=== PATIENT | male | born 1985 | race Caucasian/White ===

== ENCOUNTER 2018-03-26 15:52 | Inpatient (IN) | payer MEDICAID, OTHER ==
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
[2018-03-26] MEDS ORDERED: MAG HYDROX/AL HYDROX/SIMETH 30 ML CUP PO PRN (18:25)
[2018-03-26] MEDS ORDERED: ACETAMINOPHEN TAB 325 MG TAB PO PRN (18:25)
[2018-03-26] MEDS ORDERED: MAGNESIUM HYDROXIDE 2,400 MG/10 ML CUP PO PRN (18:25)
[2018-03-26] MEDS ORDERED: ZIPRASIDONE 20 MG VIAL IM PRN (18:25)
[2018-03-26] MEDS ORDERED: LORazepam 2 MG/ML INJ IM PRN (18:32)
[2018-03-26] MEDS: LORazepam 1 MG TAB PO PRN (18:50)
[2018-03-26] MEDS: NICOTINE 21MG/24HR PATCH TRANSDERM SCH ×2 (18:50→18:53)
--- NOTE | 2018-03-26 19:42 | P.MDCNMH ---
History of Present Illness H&P Date: 03/26/18 Chief Complaint: hypertension 32 year old male with history of schizophrenia, and hypertension. Patient presented to the hospital from [place] for psychiatry evaluation. Patient is a heroin addict. When he was asked why he was brought to the hospital he said I was brought in due to my behavior. However He denies any homicidal or suicidal ideation. He currently denies any physical complaints or medical concerns. He denies any fevers chills chest pain trouble breathing coughing denies any abdominal pain nausea vomiting changes in his urinary or bowel habits. He denies any focal neurologic deficits. He admits to using heroin and smoking cigarettes, he checked himself into rehab for heroin addiction. He claims to be compliant with his home medications: Wellbutrin, Seroquel Patient reports recent history of kidney failure about a month ago he is not aware of any other details Review of Systems Pertinent positives as noted in HPI. All other systems were reviewed and are negative Past Medical History Past Medical History: Hypertension History of Any Multi-Drug Resistant Organisms: None Reported Past Surgical History: No Surgical Hx Reported Past Psychological History: Anxiety, Bipolar, Schizophrenia Smoking Status: Current every day smoker Past Alcohol Use History: None Reported Past Drug Use History: Heroin, Marijuana - Past Family History Family Family Medical History: No Reported History Medications and Allergies Home Medications Medication Instructions Recorded Confirmed Type NIFEdipine XL [Procardia Xl] 30 mg PO DAILY 03/26/18 03/26/18 History QUEtiapine [SEROquel] 200 mg PO HS 03/26/18 03/26/18 History buPROPion HCL [Wellbutrin XL] 300 mg PO DAILY 03/26/18 03/26/18 History busPIRone HCL 15 mg PO BID 03/26/18 03/26/18 History Allergies Allergy/AdvReac Type Severity Reaction Status Date / Time No Known Allergies Allergy Verified 03/26/18 16:57 Physical Exam Vitals: Vital Signs Temp Pulse Resp BP Pulse Ox 03/26/18 15:56 97.4 F L 101 H 20 141/84 96 Intake and Output 03/26/18 03/26/18 03/26/18 06:59 14:59 22:59 Other: Weight 83.915 kg Constitutional: No acute distress, conversant, pleasant Eyes: Anicteric sclerae, moist conjunctiva, no lid-lag Pupils equal round reactive to light ENMT: NC/AT Oropharynx clear, no erythema, or exudates Neck: Supple, FROM, no masses, or JVD No carotid bruits No thyromegaly Lungs: Clear to auscultation Clear to percussion Normal respiratory effort, no accessory muscle use Cardiovascular: Heart regular in rate and rhythm, No murmurs, gallops, or rubs No peripheral edema Abdominal: Soft Nontender, no guarding, rebound or rigidity Abdomen moving with respiration Normoactive bowel sounds No hepatomegaly, No splenomegaly No palpable mass No abdominal wall hernia noted Skin: Normal temperature, tone, texture, turgor No induration No subcutaneous nodules No rash, lesions No ulcers Extremities: No digital cyanosis No clubbing Pedal pulses intact and symmetrical Radial pulses intact and symmetrical No calf tenderness Psychiatric: Alert and oriented to person, place and time Paranoid affect Poor judgment Neuro Muscles Strength 5/5 in all 4 extremities Sensation to light touch grossly present throughout Cranial nerves II-XII grossly intact No focal sensory deficits Lymphatics: no palpable cervical or supraclavicular , or inguinal lymph nodes Cranial Nerve Examination - Cranial Nerves Cranial Nerve II- Optic: Intact Cranial Nerve III- Oculomotor: Intact Cranial Nerve IV- Trochlear: Intact Cranial Nerve V- Trigeminal: Intact Cranial Nerve - Abducens: Intact Cranial Nerve VII- Facial: Intact Cranial Nerve VIII- Auditory: Intact Cranial Nerve IX- Glossopharyngeal: Intact Cranial Nerve X- Vagus: Intact Cranial Nerve XI- Accessory: Intact Cranial Nerve XII- Hypoglossal: Intact Assessment and Plan Assessment: 32-year-old male with history of hypertension and schizophrenia brought into the hospital due to abnormal behavior for psychiatry evaluation he reports that he has been compliant with his home medications, he recently admitted himself to [facility] [place] for rehab due to her addiction to heroin. He currently denies any physical or medical complaints or concerns Plan: Abnormal behavior possible acute psychosis with history of schizophrenia Management per psych Hypertension Resume nifedipine Recent history of acute renal failure per patient report Check BMP Low risk for DVT, patient is ambulatory Tobacco smoking abuse Patient counseled to quit smoking Nicotine replacement therapy offered Thank you for allowing us to participate in the care of this patient. We will follow peripherally. Do not hesitate to contact us with questions. Someone can be reached from the [facility] hospitalist group at all hours of the day at [phone].
[2018-03-26] MEDS: QUEtiapine 100 MG TAB PO SCH (20:05)
[2018-03-26 20:18] VITALS: BMI 23.7
[2018-03-27] MEDS: NIFEdipine XL 30 MG TAB.ER.24 PO SCH (08:25)
[2018-03-27] MEDS: NICOTINE 21MG/24HR PATCH TRANSDERM SCH (08:26)
[2018-03-27] MEDS: ARIPiprazole 15 MG TAB PO SCH (09:51)
[2018-03-27] MEDS: busPIRone HCl 5 MG TAB PO SCH ×2 (09:52→20:10)
[2018-03-27 11:12] LABS: Basophils % (A) 1 %; Eosinophils # (A) 0.1 k/uL (0-0.7); Eosinophils % (A) 1 %; HCT 44.7 % (39.0-53.0); HGB 14.8 gm/dL (13.0-17.5); Lymphocytes # (A) 1.5 k/uL (1.0-4.8); Lymphocytes % (A) 22 %; MCH 30.1 pg (25.0-35.0); MCHC 33.1 g/dL (31.0-37.0); Mean Platelet Volume 6.9; Monocytes # (A) 0.4 k/uL (0-1.0); Monocytes % (A) 6 %; Neutrophils # (A) 4.7 k/uL (1.3-7.7); Neutrophils % (A) 68 %; Platelet Count 270 k/uL (150-450); RBC 4.91 m/uL (4.30-5.90); WBC 6.9 k/uL (3.8-10.6)
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
[2018-03-27 11:41] LABS: ALT 52 U/L (21-72); AST 30 U/L (17-59); Alkaline Phosphatase 102 U/L (38-126); Anion Gap 15 mmol/L; Blood Urea Nitrogen 25 mg/dL (9-20); Calcium 10.3 mg/dL (8.4-10.2); Carbon Dioxide 17 mmol/L (22-30); Chloride 108 mmol/L (98-107); Glucose 102 mg/dL (74-99); Potassium 4.4 mmol/L (3.5-5.1); Sodium 140 mmol/L (137-145); Total Bilirubin 1.5 mg/dL (0.2-1.3); Total Protein 8.8 g/dL (6.3-8.2)
[2018-03-27] MEDS: buPROPion XL 300 MG TAB.ER.24H PO SCH (11:53)
[2018-03-27] MEDS: QUEtiapine 100 MG TAB PO SCH (20:10)
[2018-03-28] MEDS: busPIRone HCl 5 MG TAB PO SCH ×2 (08:11→21:03)
[2018-03-28] MEDS: NIFEdipine XL 30 MG TAB.ER.24 PO SCH (08:11)
[2018-03-28] MEDS: NICOTINE 21MG/24HR PATCH TRANSDERM SCH (08:11)
[2018-03-28] MEDS: buPROPion XL 300 MG TAB.ER.24H PO SCH (08:11)
[2018-03-28] MEDS: ARIPiprazole 15 MG TAB PO SCH (08:11)
--- NOTE | 2018-03-28 16:19 | P.PN ---
Progress Note - Text Progress Note Date: 03/28/18 Interval history: Patient is seen in cross coverage today. He reports that he is feeling better. He does not voice any adverse psychotropic medication side effects. Sleep and appetite seem to be doing well. He talks about coming from [place] and does not want to lose his bed there. Mental status exam: He is alert and cooperative with the interview. Speech is fluent, not rapid or pressured. Thought processes are organized. His mood he describes is doing well. He denies any thoughts of harm to self or others. He does not verbalize any hallucinations or delusional thoughts. He is not showing any agitation. Plan: Patient be maintained on current psychotropic medication regimen. We'll continue to monitor for any medication side effects monitor his ongoing response to treatment.
[2018-03-28] MEDS: QUEtiapine 100 MG TAB PO SCH (21:03)
[2018-03-29] MEDS: NICOTINE 21MG/24HR PATCH TRANSDERM SCH (07:59)
[2018-03-29] MEDS: busPIRone HCl 5 MG TAB PO SCH ×2 (08:00→20:26)
[2018-03-29] MEDS: NIFEdipine XL 30 MG TAB.ER.24 PO SCH (08:00)
[2018-03-29] MEDS: ARIPiprazole 15 MG TAB PO SCH (08:00)
[2018-03-29] MEDS: buPROPion XL 300 MG TAB.ER.24H PO SCH (08:00)
--- NOTE | 2018-03-29 14:19 | P.PN ---
Progress Note - Text Progress Note Date: 03/29/18 Interval history: Patient seen in [facility] again today. Says he slept about 8-9 hours last night. His appetite is improved. He states that his sleep and appetite were decreased before came in the hospital. He again relates today that he came here from [place] where he had been for just a brief time. He is compliant with taking psychotropic medications and does not voice any adverse side effects. Mental status exam: He is alert and cooperative with the interview. He does not show any agitation. He describes that his mood is doing well and makes reference to wanting to be discharged. He denies any thoughts of harm to self or others. He denies any hallucinations. Thought processes are organized. Plan: Patient will be maintained on current psychotropic medications. Continue to monitor his ongoing response to treatment and monitor for any medication side effects.
[2018-03-29] MEDS: LORazepam 1 MG TAB PO PRN (16:18)
[2018-03-29] MEDS: QUEtiapine 100 MG TAB PO SCH (20:26)
[2018-03-30] MEDS: ARIPiprazole 15 MG TAB PO SCH (07:57)
[2018-03-30] MEDS: busPIRone HCl 5 MG TAB PO SCH ×2 (07:57→19:58)
[2018-03-30] MEDS: NICOTINE 21MG/24HR PATCH TRANSDERM SCH (07:58)
[2018-03-30] MEDS: NIFEdipine XL 30 MG TAB.ER.24 PO SCH (07:58)
[2018-03-30] MEDS: buPROPion XL 300 MG TAB.ER.24H PO SCH (07:58)
--- NOTE | 2018-03-30 10:52 | P.PN ---
Progress Note - Text Interval history: The patient is found in his room he follows me to an interview room. He indicates his mood is improving. He reports that he is not experiencing any delusional thoughts or hallucinations since he has been here. Staff report though over the weekend he had been discussing delusional themes. Other staff find he is guarded and underreporting symptoms. He has no questions or concerns regarding his medication. He states he plans on going to [place] and then some longer term residential facility for chemical dependency treatment. Mental status exam: The patient is alert he is dressed in his own clothing. Eye contact is appropriate speech is fluent spontaneous nonpressured. He is fairly reserved other than expressing he wants to be discharged there is little spontaneous speech. He denies having any suicidal or homicidal ideation intent or plan. He is reporting no auditory or visual hallucinations or any specific delusions. This seems to conflict with reports from staff observing him over the weekend. He demonstrates no verbal or physical aggressiveness. Affect remains constricted. He is oriented to person place and date. Plan: The patient will continue on his current medication we will consider titrating the Abilify further. We are monitoring him for safety. Social work will investigate his eligibility to return to [place] and we'll contact his mother. We will continue to monitor him for safety. Vital signs reviewed.
[2018-03-30] MEDS: LORazepam 1 MG TAB PO PRN ×2 (12:06→19:13)
[2018-03-30] MEDS: QUEtiapine 100 MG TAB PO SCH (19:58)
[2018-03-31] MEDS: LORazepam 1 MG TAB PO PRN ×3 (01:35→18:59)
[2018-03-31] MEDS: buPROPion XL 300 MG TAB.ER.24H PO SCH (08:32)
[2018-03-31] MEDS: busPIRone HCl 5 MG TAB PO SCH ×2 (08:32→20:08)
[2018-03-31] MEDS: NICOTINE 21MG/24HR PATCH TRANSDERM SCH (08:32)
[2018-03-31] MEDS: ARIPiprazole 15 MG TAB PO SCH (08:33)
[2018-03-31] MEDS: NIFEdipine XL 30 MG TAB.ER.24 PO SCH (08:33)
--- NOTE | 2018-03-31 11:16 | P.PN ---
Progress Note - Text Interval history: The patient is found in his room he follows me to an interview room. The patient states that he sleeping at night and feels that he is much improved because he was able to sleep here in the hospital. He states he has had no experiences of hallucinations and reports they are random. He continues to assert that even during prolonged clean times he has had symptoms of psychosis. He feels the Abilify may be preventing them from occurring now. He did participate in group today. He is demonstrating no agitated behavior. He is ventilating his frustration that he would like to move on to the next step which is [facility]. Social work has informed me that [facility] is willing to take the patient back once he is psychiatric stable. Staff share that he has been showering he's been eating and he is capable of attending to his own activities of daily living. Mental status exam: The patient is alert he is dressed in his own clothing hygiene grooming are good. He seated calmly in the chair for the duration of our session. Eye contact is appropriate speech is fluent spontaneous nonpressured. He demonstrates no tangential thinking loose associations or flight of ideas. He is reporting no auditory or visual hallucinations he is endorsing no specific delusions at this time. He continues to assert that "those things are real" but occur randomly. He voices frustration that people assume he has no symptoms because of drug use. He demonstrates no verbal or physical aggressiveness. He demonstrates no abnormal repetitive involuntary movements. Affect demonstrates some range. Initially appears frustrated but he is able to appropriately smile and show reactivity during the conversation. He is oriented to person place and date. Plan: The patient will be continued on his current medication. We will indicate to [facility] that the patient appears to be stable to participate in their program. He is endorsing no acute psychosis he is demonstrating an ability to accomplish his own ADLs he is voicing no suicidal or homicidal thoughts. Vital signs reviewed. He will be appropriate for discharge to an available bed at [facility].
[2018-03-31] MEDS: QUEtiapine 100 MG TAB PO SCH (20:08)
[2018-04-01 07:26] VITALS: BP 108/63; PULSE 61; RESP 16; TEMP 97.6
[2018-04-01] MEDS: NICOTINE 21MG/24HR PATCH TRANSDERM SCH (07:54)
[2018-04-01] MEDS: ARIPiprazole 15 MG TAB PO SCH (07:55)
[2018-04-01] MEDS: buPROPion XL 300 MG TAB.ER.24H PO SCH (07:55)
[2018-04-01] MEDS: NIFEdipine XL 30 MG TAB.ER.24 PO SCH (07:55)
[2018-04-01] MEDS: busPIRone HCl 5 MG TAB PO SCH (09:06)
--- NOTE | 2018-04-01 11:09 | P.DS ---
Providers Date of admission: 03/26/18 17:44 Expected date of discharge: 04/01/18 Attending physician: Balwinder Beckham Consults: 03/26/18 18:25 Consult Physician Routine Consulting Provider: Daniel Physician Consult Reason/Comments: H & P and medical management Do you want consulting provider notified?: Yes Primary care physician: Physician Nonstaff - Discharge Diagnosis(es) (1) Unspecified psychosis Current Visit: Yes Status: Acute Priority: High (2) Cannabis use disorder, moderate, dependence Current Visit: Yes Status: Acute Priority: Medium (3) Methamphetamine use disorder, moderate Current Visit: Yes Status: Acute Priority: High (4) Opioid use disorder Current Visit: Yes Status: Acute Priority: High (5) Cocaine use disorder Current Visit: Yes Status: Acute Priority: Medium Hospital Course: Brief summary of admission note: This patient is a 32-year-old male who was admitted to the mental health unit through the emergency room with acute symptoms of psychosis. The patient was petition by his mother. The patient was making statements that monsters and spider people were going to kill him. He reported experiencing visual and auditory hallucinations. He felt that somebody was impersonating his mother. He had not been sleeping or eating well since the of his brother in February. For full details please refer to my psychiatric evaluation dated 03/27/2018. Summary of hospital course: The patient was admitted to the mental health unit and he signed in voluntarily. We reviewed his presenting symptoms and treatment options. He had described a long-standing history of experiencing auditory and visual hallucinations and delusional thoughts of being followed by invisible monsters. He states that he would often here noises of people being consumed by these creatures. He is aware that the substances he uses candid provoke symptoms of psychosis but he states that there are times when he is sober and still experiences the symptoms of psychosis. He does abuse numerous substances. He readily was willing to return to [place] once psychiatrically cleared. Social work has been in touch with the patient's mother and she states that the patient's able to return with him until he can go to an inpatient chemical dependency unit again. The patient was started on Abilify and we titrated the dose accordingly during the course of the hospitalization. He continued on the Seroquel at 100 mg at bedtime but this is a transition plan and likely this can be discontinued in the outpatient setting. He continued on his BuSpar and Wellbutrin XL. The patient demonstrated progressive improvement of symptoms while here. He is reporting no suicidal or homicidal thoughts. He is able to attend to his activities of daily living. Mental status exam: The patient is alert he is dressed in his own clothing hygiene grooming are adequate. Speech is fluent spontaneous nonpressured. He reports no suicidal or homicidal ideation intent or plan. He reports no auditory or visual hallucinations or any specific delusions. There is no observed evidence of psychosis at this time. He demonstrates no tangential thinking loose associations or flight of ideas. There is no observed evidence of hypomania or tesfaye. He demonstrates no verbal or physical aggressiveness and he demonstrates no abnormal involuntary movements. Affect is brighter he demonstrates an increased range of expression appropriately. He remains oriented to person place and date. He spontaneously describes future oriented thinking. Impressions 1. Psychosis unspecified, rule out schizophrenia, rule out symptoms of psychosis that are substance induced, cannabis use disorder methamphetamine use disorder opioid use disorder cocaine use disorder, bereavement Plan: The patient will be discharged mental health unit today. If he is not accepted back to [place] today he will reside with his mother until he is able to get back into chemical dependency treatment as an inpatient. The patient will continue on Abilify 20 mg daily Wellbutrin XL 300 mg in the morning BuSpar 15 mg twice daily Seroquel 100 mg at bedtime. The patient is on 2 antipsychotic medications at this time the plan is for him to taper off of the Seroquel in the outpatient setting. At this time the Seroquel was needed to assist his sleep while we are titrating the Abilify and waiting for the Abilify to demonstrate full efficacy. The patient's instructed to abstain from all use of alcohol marijuana or any other illicit drug as these substances will interfere with the efficacy of his prescribed medication and those substances will also elevate his safety risk. At this time there is no imminent safety risk is appropriate for transition to outpatient care/inpatient chemical dependency treatment. He is instructed to return to the hospital with any acute safety concerns. Patient Condition at Discharge: Stable Plan - Discharge Summary Discharge Rx Participant: Yes New Discharge Prescriptions: New ARIPiprazole [Abilify] 20 mg PO DAILY #30 tab buPROPion XL [Wellbutrin XL] 300 mg PO DAILY #30 tab.er.24h Nicotine 21Mg/24Hr Patch [Habitrol] 1 patch TRANSDERM DAILY #10 patch QUEtiapine [SEROquel] 100 mg PO HS #30 tab Continue NIFEdipine XL [Procardia XL] 30 mg PO DAILY busPIRone HCL 15 mg PO BID #60 tablet Discontinued buPROPion HCL [Wellbutrin XL] 300 mg PO DAILY QUEtiapine [SEROquel] 200 mg PO HS Discharge Medication List NIFEdipine XL [Procardia XL] 30 mg PO DAILY 03/26/18 [History] ARIPiprazole [Abilify] 20 mg PO DAILY #30 tab 04/01/18 [Rx] Nicotine 21Mg/24Hr Patch [Habitrol] 1 patch TRANSDERM DAILY #10 patch 04/01/18 [ Rx] QUEtiapine [SEROquel] 100 mg PO HS #30 tab 04/01/18 [Rx] buPROPion XL [Wellbutrin XL] 300 mg PO DAILY #30 tab.er.24h 04/01/18 [Rx] busPIRone HCL 15 mg PO BID #60 tablet 04/01/18 [Rx] Follow up Appointment(s)/Referral(s): Nonstaff,Physician [Primary Care Provider] - 1-2 days
[2018-04-01] MEDS: LORazepam 1 MG TAB PO PRN (11:54)
== END 2018-04-01 12:44 | disposition home or self-care (01) | DRG 885 ==
LOC: EC 15:52 → 3MHU 17:44
PROVIDERS: ADMIT Psychiatry & Neurology Psychiatry; ATTEND Psychiatry & Neurology Psychiatry
DX: F20.9 Schizophrenia, unspecified (principal); F11.20 Opioid dependence, uncomplicated; F12.20 Cannabis dependence, uncomplicated; F17.210 Nicotine dependence, cigarettes, uncomplicated; Z71.6 Tobacco abuse counseling; F14.10 Cocaine abuse, uncomplicated; F15.10 Other stimulant abuse, uncomplicated; F41.0 Panic disorder [episodic paroxysmal anxiety]; Z63.4 Disappearance and death of family member; Z79.899 Other long term (current) drug therapy; Z81.8 Family history of other mental and behavioral disorders; Z65.3 Problems related to other legal circumstances; I10 Essential (primary) hypertension; Z81.4 Family history of other substance abuse and dependence
CPT/HCPCS: 80053; 82075; 84443; 85025; 93005; 99285